=== PATIENT | female | born 1955 | race African-American/Black ===

== ENCOUNTER 2022-09-11 11:47 | Emergency (ER) | payer MEDICARE, MEDICAID ==
[~2022-09-11] VITALS: Ht 165.1 cm; Wt 115.0 kg
[~2022-09-11 11:47] MED LIST: ATOR10TA69 PO; CARV3.1242 PO; FURO-151 PO; LOSA25TA26 PO; MULT-1146 PO
[2022-09-11 11:54] VITALS: BP 172/93
[2022-09-11 14:40] LABS: BASOPHILS % 1.1 % (0.0-2.0); EOSINOPHILS % 1.3 % (0.0-5.0); HEMATOCRIT. 37.4 % (36.0-48.0); HEMOGLOBIN. 12.5 g/dL (12.0-16.0); LYMPHOCYTES % 21.9 % (20.0-50.0); MEAN CORPUSCULAR HEMOGLOBIN 30.9 pg (28.0-32.0); MEAN CORPUSCULAR VOLUME 92.3 fL (81.0-99.0); MONOCYTES % 6.5 % (2.0-8.0); NEUTROPHILS % 69.2 % (40.0-76.0); PLATELET 249 x1000/uL (130-400); RED BLOOD CELL COUNT 4.06 mill/uL (4.2-5.4); RED CELL DISTRIBUTION WIDTH 13.3 % (11.6-14.6)
[2022-09-11 14:55] LABS: CHLORIDE 104 mEq/L (98-107)
== END 2022-09-11 19:13 | disposition home or self-care (01) ==
LOC: ER 11:47
DX: R55 Syncope and collapse (principal); F12.10 Cannabis abuse, uncomplicated; E11.9 Type 2 diabetes mellitus without complications; I11.0 Hypertensive heart disease with heart failure; I50.9 Heart failure, unspecified; J45.909 Unspecified asthma, uncomplicated
CPT/HCPCS: 36415; 71045; 80053; 83880; 84484; 85025; 93005; 99284